=== PATIENT | female | born 1985 | race Caucasian/White ===

== ENCOUNTER 2021-03-15 03:13 | Emergency (ER) | payer BC ==
[~2021-03-15] VITALS: Ht 157.5 cm; Wt 86.2 kg
[2021-03-15] MEDS ORDERED: NAPROSYN500 MG PO (03:50)
[2021-03-15 04:05] VITALS: BP 129/93
== END 2021-03-15 04:19 | disposition home or self-care (01) ==
LOC: ER 03:13
DX: S00.83XA Contusion of other part of head, initial encounter (principal); Z98.890 Other specified postprocedural states; Y04.0XXA Assault by unarmed brawl or fight, initial encounter; Y93.89 Activity, other specified; Y92.89 Other specified places as the place of occurrence of the external cause; Y99.8 Other external cause status